=== PATIENT | male | born 1960 | race Two or more races ===

== ENCOUNTER 2019-08-16 18:06 | Emergency (ER) | payer OTHER ==
[~2019-08-16] VITALS: Ht 165.1 cm; Wt 106.6 kg
--- NOTE | 2019-08-16 18:15 | NUR ---
SURJIT, FROM WORK, 59 YEAR OLD MALE C/O CHEST PAIN PRESSURE LIKE PAIN, RADIATING TO BACK ASA 325MG AND 1 NITRO SPRAY GIVEN BY EMS ON SCENE NOT RELIEVE. ALERT AND ORIENTED X3, BREATHING EVEN AND UNLABORED. SKIN INTACT AND WARM TOUCH. WAITING TO BE SEEN BY
[2019-08-16] MEDS ORDERED: NITROGLYCERIN PACKET 1 GM PACKET ONE (18:24)
[2019-08-16] MEDS ORDERED: ASPIRIN 81 MG TAB.CHEW ONE (18:24)
[2019-08-16 18:25] LABS: BASOPHILS # (AUTO) 0.1 /CMM (0.0-0.2); BASOPHILS % (AUTO) 0.7 % (0.0-2.0); EOSINOPHILS % (AUTO) 0.6 % (0.0-6.0); HEMATOCRIT 36 % (39-51); LYMPHOCYTES # (AUTO) 1.5 /CMM (0.8-4.8); LYMPHOCYTES % (AUTO) 13.7 % (20.0-44.0); MEAN CORPUSCULAR HGB CONC 34 g/dl (31.0-36.0); MEAN CORPUSCULAR VOLUME 91 fL (80-96); MONOCYTES % (AUTO) 9.5 % (2.0-12.0); NEUTROPHILS # (AUTO) 8.3 /CMM (1.8-8.9); NEUTROPHILS % (AUTO) 75.5 % (43.0-81.0); PLATELET COUNT (AUTO) 282 /CMM (150-450); RED BLOOD CELL COUNT(AUTO) 3.92 MIL/uL (4.5-6.0)
[2019-08-16] MEDS ORDERED: ASPIRIN 81 MG TAB.CHEW PO ONE (18:30)
[2019-08-16] MEDS ORDERED: NITROGLYCERIN PACKET 1 GM PACKET TD ONE (18:30)
[2019-08-16 18:34] LABS: CALCIUM, SERUM 9.7 mg/dL (8.5-10.1); CARBON DIOXIDE 22 mmol/L (21-32); CHLORIDE 103 mmol/L (98-107); CREATININE 1.7 mg/dL (0.6-1.3); GLUCOSE 239 mg/dL (74-106); POTASSIUM 4.6 mmol/L (3.5-5.1); SODIUM SERUM 136 mmol/L (136-145); UREA NITROGEN, BLOOD 33 mg/dL (7-18)
[2019-08-16 18:42] LABS: ALANINE AMINOTRANSFERASE 23 U/L (12-78); ALBUMIN 3.4 g/dL (3.4-5.0); ALKALINE PHOSPHATASE 84 U/L (46-116); ASPARTATE AMINOTRANSFERASE 22 U/L (15-37); BILIRUBIN,DIRECT 0.2 mg/dL (0.0-0.2); BILIRUBIN,TOTAL 0.9 mg/dL (0.2-1.0); TOTAL PROTEIN, SERUM 7.9 g/dL (6.4-8.2)
--- NOTE | 2019-08-16 18:43 | NUR ---
IV SALINE LOCK STARTED ON LEFT ANTERIOR HAND.
--- NOTE | 2019-08-16 18:45 | NUR ---
BLOODWORK SENT TO LAB.
--- NOTE | 2019-08-16 19:10 | NUR ---
CALLED [facility], PRESENTED PT, AWAITING CALL BACK FROM [facility]
--- NOTE | 2019-08-16 19:18 | NUR ---
PT RECEIVED FROM KARIN HAMMOND FOR [facility]. PT IN BED AAOX4. NAD NOTED. AWAITING TRANSFER TO [place].
--- NOTE | 2019-08-16 19:22 | NUR ---
REPORT GIVEN TO [facility] FOR [facility]
--- NOTE | 2019-08-16 20:28 | NUR ---
RECEIVED CALL FROM [facility], PT ACCEPTED TO [facility] ER BY DR. GRANADO, NUMBER TO GIVE REPORT IS [phone], [facility] SHOULD ARRIVE BY [phone]
[2019-08-16 20:55] VITALS: BP 133/80
--- NOTE | 2019-08-16 21:05 | NUR ---
[facility] AT BEDSIDE FOR PT TRANSPORT TO [facility]. NAD NOTED UPON DISCHARGE. PT IS AAOX4. NO RESP DISTRESS. REPORT GIVEN.
--- NOTE | 2019-08-16 21:23 | NUR ---
CALLED TO [facility], SPOKE WITH KARIN GARCIA TO INFORM PT OF TRANSFER
== END 2019-08-16 22:04 | disposition short-term general hospital (02) ==
LOC: ER 18:09
DX: R07.89 Other chest pain (principal); E11.9 Type 2 diabetes mellitus without complications; Z94.0 Kidney transplant status; Z60.2 Problems related to living alone
CPT/HCPCS: 36415; 71045-TC; 80048-TC; 80076-TC; 84484-TC; 85025-TC